=== PATIENT | female | born 1970 | race Two or more races ===

== ENCOUNTER 2016-11-09 06:15 | Emergency (ER) | payer OTHER ==
--- NOTE | ~2016-11-09 | US67 ---
[facility] A Service of [facility] RADIOLOGY TEXT RESULTS PATIENT: POLI PEREZ LOCATION: [facility] : [birth year] UNIT #: [id number] AGE: [address]: Jono Hearn MD SEX: F ORDER DR: [id number] [facility] [address]. [place], [place] [address] [id number] MR#: [id number] Acc #: [id number] NAME: POLI PEREZ : 1970 SEX: F STUDY DATE/TIME: 11/09/2016 8:56 UNIT: FELIX ROOM: STUDY DESCRIPTION: Gallbladder Attending Physician: Jono Hearn M.D. Ordering Physician: Jono Hearn M.D. [facility] REPORT This report is preliminary unless electronic signature is present EXAM Right upper quadrant abdominal ultrasound INDICATION Generalized abdominal pain for the past 6 months, worsening over the past day. PROCEDURE Ernandez-scale and Doppler imaging right upper quadrant of the abdomen. COMPARISON 06/12/2016 FINDINGS Technically difficult study secondary to body habitus and bowel gas. Pancreas is mostly obscured and not well seen. The liver has diffusely increased echotexture. Liver measures approximately 17.5 cm. No visible liver mass on submitted images. 2.1 cm stone in the gallbladder. Gallbladder sludge. There is no wall thickening or pericholecystic fluid. Common duct measures 5.0 mm. The right kidney measures 10.7 cm and is unremarkable. IMPRESSION 1. Hepatic steatosis. 2. 2.1 cm stone in the gallbladder as well as some sludge. No appreciable gallbladder wall thickening or pericholecystic fluid. 3. Common duct upper limits of normal. Dictated by... Samuel Noriega M.D. THIS IS AN ELECTRONICALLY VERIFIED REPORT Samuel Noriega M.D. at 11/12/2016 1:55 PM [facility] A Service of [facility] RADIOLOGY TEXT RESULTS PATIENT: POLI PEREZ LOCATION: [facility] : [birth year] UNIT #: [id number] AGE: [address]: Jono Hearn MD SEX: F ORDER DR: BRIEN/thalia TD: 11/09/2016 11:22 JOB #: [id number] MEDICAL IMAGING REPORT Page 1 of 1 COPY
[~2016-11-09 06:15] MED LIST: ASPIRIN81 M2 PO; ENALAPRIL MALEA10 MG PO; GLUCOPHAGE850 MG PO; NORCO 7.5-3251 EACH
[2016-11-09 07:55] LABS: BASOPHIL% 0.6 % (0-2.5); EOSINOPHIL# 0.4 X10e3 (0-0.7); EOSINOPHIL% 5.3 % (0.0-7.0); HEMATOCRIT 40.6 % (35.0-45.0); HEMOGLOBIN 13.4 gm/dL (12.0-16.0); LYMPHOCYTE# 2.9 X10e3 (1.0-3.5); LYMPHOCYTE% 40.2 % (17.0-45.0); MEAN CELL VOLUME 83.5 FL (83-96); MEAN CORPUSCULAR HEMOGLOBIN 27.6 PG (28-34); MEAN PLATELET VOLUME 9.6 FL (6.5-11.5); MONOCYTE# 0.5 X10e3 (0-1.0); MONOCYTE% 7.4 % (3.0-12.0); NEUTROPHIL# 3.4 X10e3 (1.5-7.1); NEUTROPHIL% 46.5 % (40-75); PLATELET COUNT 271 X10e3 (140-420); RED BLOOD COUNT 4.87 X10e (3.90-5.30); RED CELL DISTRIBUTION WIDTH 13.7 % (11.0-15.5); WHITE BLOOD COUNT 7.3 X10e3 (4.0-10.5)
[2016-11-09 08:04] LABS: DIFF IND NO
[2016-11-09 08:29] LABS: ALKALINE PHOSPHATASE 61 U/L (32-92); ALT (SGPT) 50 U/L (10-40); AMYLASE 20 U/L (0-46); AST (SGOT) 35 U/L (10-42); BILIRUBIN,TOTAL 0.7 mg/dL (0.2-2.0); BLOOD UREA NITROGEN 10 mg/dL (9-23); CALCIUM SERUM 9.2 mg/dL (8.4-10.2); CARBON DIOXIDE 27 mmol/L (22-31); CHLORIDE 99 mmol/L (100-111); CREATININE SERUM 0.5 mg/dL (0.6-1.4); GLOM FILT RATE Estimated 116.9 mL/min (>60); GLUCOSE FASTING 136 mg/dL (70-110); LIPASE 21 U/L (22-51); PROTEIN TOTAL SERUM 6.8 g/dL (6.0-8.3); SODIUM 137 mmol/L (135-145)
[2016-11-09 08:31] LABS: BILIRUBIN, DIRECT <0.1 mg/dL (0.0-0.2); BILIRUBIN,INDIRECT 0.6 mg/dL (0.0-0.9)
[2016-11-09 09:47] LABS: POC - CKMB <1.0 ng/mL (0.0-7.9); POC - TROPONIN <0.05 ng/mL (<=0.05)
== END 2016-11-09 10:27 | disposition home or self-care (01) ==
LOC: CED 06:15
PROVIDERS: Emergency Medicine
DX: K80.70 Calculus of gallbladder and bile duct without cholecystitis without obstruction (principal); E11.9 Type 2 diabetes mellitus without complications; I10 Essential (primary) hypertension
CPT/HCPCS: 36415; 76705; 80048; 80076; 82150; 82553; 83690; 84484; 85025; 96361; 96374; 96375; 99284; J2270; J2405

== ENCOUNTER → 2016-11-23 | Day surgery (SDC) | payer OTHER ==
[~2016-11-23] MED LIST changes: +ASPIRIN EC81 M1 PO; +CHLORTHALIDONE25 M1 PO; +GLUCOPHAGE500 MG PO; +MICRONASE5 M2 PO; +OMEPRAZOLE20 M1; +OMEPRAZOLE20 M1 PO; +VASOTEC10 MG PO
--- NOTE | ~2016-11-23 | EKG ---
PATIENT: POLI PEREZ UNIT #: [id number] Ventricular Rate: 69 BPM Atrial Rate: 69 BPM P-R Interval: 128 ms QRS Duration: 84 ms Q-T Interval: 424 ms QTC Calculation(Bezet): 454 ms P [place]: 19 degrees Calculated T [place]: 11 degrees Diagnosis Line: Normal sinus rhythm Diagnosis Line: Normal ECG Diagnosis Line: When compared with ECG of 12-JUN-2016 08:47, Diagnosis Line: No significant change was found Diagnosis Line: Confirmed by BLAIR AKINS MD ([id number]) on 11/24/2016 Diagnosis Line: 5:41:45 AM INTERPRETING MD: TASHI SAHA
--- NOTE | ~2016-11-23 | OR ---
Unit #: [id number] #: [id number] Patient: POLI PEREZ [id number] [address] [address] [id number] O MR#: [id number] NAME: POLI PEREZ ROOM: Date of Procedure: 11/23/2016 Admission Date: 11/23/2016 Surgeon: Primitivo Moore M.D. : 1970 Attending Physician: Primitivo Moore M.D. Primary Care Physician: [facility] OPERATIVE REPORT PREOPERATIVE DIAGNOSES 1. Cholelithiasis. 2. Chronic cholecystitis. POSTOPERATIVE DIAGNOSES 1. Cholelithiasis. 2. Chronic cholecystitis. PROCEDURE PERFORMED Laparoscopic cholecystectomy. MINERAL ENGINEER Avtar Garrett M.D. ANESTHESIA General endotracheal anesthesia. ESTIMATED BLOOD LOSS Minimal. IV FLUIDS 800 crystalloid. COMPLICATIONS None. INDICATIONS FOR PROCEDURE The patient is a 45-year-old lady with history of gallstones. DESCRIPTION OF PROCEDURE The patient was taken to the operative theater and placed in supine position. General anesthesia was induced. Her abdomen was prepped and draped. A 5-mm Optiview trocar was placed in the right upper quadrant without difficulty. The abdomen was insufflated to 15 mmHg with CO2. Under direct vision, I placed a subxiphoid 10 mm, right lateral 5 mm, umbilical 5 mm. General inspection of the abdomen revealed adhesions to the gallbladder. These were taken down. The gallbladder was retracted up over the liver. We dissected the neck of the gallbladder and identified the cystic duct. Its junction with the gallbladder was confirmed. It was thus skeletonized, doubly hemoclipped, and divided. The cystic artery laid immediately posterior. This was skeletonized, doubly hemoclipped, and divided. The gallbladder was removed from the gallbladder bed with Unit #: [id number] #: [id number] Patient: POLI PEREZ Bovie electrocautery and delivered via the subxiphoid port. Hemostasis was adequate. I saw no other abnormalities. The ports were removed. The fascia was closed with 0 Vicryl and skin with 4-0 Vicryl. The patient tolerated the procedure well and sent to recovery room in good condition. Dictated by... Cedric CrowderO/gurjit TD: 11/23/2016 20:46 JOB #: [id number] OPERATIVE REPORT Page 1 of 1 X Primitivo Moore MD PROCEDURE OPERATIVE NOTE
== END | disposition home or self-care (01) ==
LOC: CSUR 07:30
PROVIDERS: Surgery
PROC: 0FT44ZZ Resection of Gallbladder, Percutaneous Endoscopic Approach (ICD-10-PCS; principal; 2016-11-23 12:00)
DX: K80.10 Calculus of gallbladder with chronic cholecystitis without obstruction (principal); E11.9 Type 2 diabetes mellitus without complications; Z79.84 Long term (current) use of oral hypoglycemic drugs; Z82.3 Family history of stroke; Z87.898 Personal history of other specified conditions; Z90.49 Acquired absence of other specified parts of digestive tract
CPT/HCPCS: 82947; 84703; 88304; 93005; J0690; J1170; J1644; J2250; J2405; J3010

== ENCOUNTER 2016-12-29 17:18 | Observation (INO) | payer OTHER ==
[~2016-12-29] VITALS: Ht 154.9 cm; Wt 63.5 kg
--- NOTE | ~2016-12-29 | HP ---
Unit #: [id number] #: [id number] Patient: POLI PEREZ [id number] [address] [address] [id number] I MR#: [id number] NAME: POLI PEREZ. ROOM: 240 Age: 46 Sex: F Admission Date: 12/29/2016 : 1970 Attending Physician: Jorge Echols M.D. Primary Care Physician: [facility]. HISTORY AND PHYSICAL REASON FOR ADMISSION Bolus meat impaction of the esophagus. HISTORY Ms. Perez is a 46-year-old female. History was provided by who was at bedside. She presents with an episode of bolus meat impaction with a beef taco that happened yesterday at 3 in the afternoon. The patient came to the emergency room. She has been able to swallow her saliva and is having pain in the area just below the pharynx. There is no previous history of retrosternal sounding heartburn, postprandial dyspepsia nor any history of dysphagia in the past. PAST MEDICAL HISTORY Significant for: 1. Hypertension. 2. Diabetes. PAST SURGICAL HISTORY History of appendectomy. MEDICATIONS Medications at home included: 1. Glucophage. 2. Micronase. 3. Vasotec. 4. Chlorthalidone. 5. Aspirin. ALLERGIES She has no known drug allergies. SOCIAL HISTORY She does not smoke or drink alcohol. Lives at home. FAMILY HISTORY None of colon or pancreatic cancer of liver disease. REVIEW OF SYSTEMS A detailed review of organ systems does not reveal any recent weight loss. No history of fever, chills or diagnosis of headaches, seizures, chest pain or syncope. No history of cough, expectoration or hemoptysis. No history of dysuria, hematuria, pyuria. No history of focal seizures or extremity weakness. Unit #: [id number] #: [id number] Patient: POLI PEREZ PHYSICAL EXAMINATION GENERAL APPEARANCE: She is awake, alert and oriented. VITAL SIGNS: Her current blood pressure is 160/103. Pulse is 78 per minute and regular, respiratory rate 18, temperature is 98.4. She had no pallor, icterus, lymphadenopathy or peripheral edema. CARDIOVASCULAR EXAMINATION: Normal heart sounds. No murmurs. LUNGS: Auscultation over the lungs reveals normal breath sounds. Good air entry. ABDOMEN: Soft, nontender. Liver and spleen are not palpable. Bowel sounds normal. DIAGNOSTIC STUDIES LABORATORY: Lab evaluation has not been done. CLINICAL IMPRESSION Patient with bolus of meat impaction, needs emergent endoscopy to be done first thing in the morning. The pros and cons of procedure, potential risks and complications including possibly a perforation, bleeding and complication with any sedation were discussed with the patient and her family. Dictated by Cedric Carmona TD: 12/30/2016 07:47 JOB #: [id number] HISTORY AND PHYSICAL Page 1 of 1 X Jorge Echols MD HISTORY AND PHYSICAL
--- NOTE | ~2016-12-29 | DS ---
Unit #: [id number] #: [id number] Patient: POLI PEREZ [id number] [facility]. [address] [address] [id number] I MR#: [id number] NAME: POLI PEREZ. ROOM: 240 Age: 46 Sex: F Admission Date: 12/29/2016 : 1970 Discharge Date: 12/30/2016 Attending Physician: Jorge Echols M.D. Primary Care Physician: [facility]. DISCHARGE SUMMARY DIAGNOSIS Meat impaction of the esophagus. PROCEDURE DONE DURING CURRENT HOSPITALIZATION Upper GI endoscopy, done on 12/30/2016. DISCHARGE MEDICATIONS These included all of the preadmission medications and included glyburide 5 mg p.o. b.i.d., aspirin 81 mg p.o. daily, chlorthalidone 12.5 mg p.o. daily, Vasotec 10 mg p.o. daily, metformin 5 mg p.o. b.i.d. Patient was advised to take omeprazole vvgq-[id number] 20 mg p.o. daily for the next couple of months. NARRATIVE This young lady came in with history bolus meat impaction and was admitted to the emergency room as an outpatient observation bed. Upper endoscopy was performed first thing in the morning and was completely normal, there being no stricture, mucosal ring nor any esophagitis. The patient did not have any foreign body or meat impaction in the esophagus. The patient was, therefore, discharged after reassurance. Dictated by... Cedric Carmona TD: 12/30/2016 20:28 JOB #: [id number] DISCHARGE SUMMARY Page 1 of 1 X Jorge Echols MD X DISCHARGE SUMMARY
--- NOTE | ~2016-12-29 | OR ---
Unit #: [id number] #: [id number] Patient: POLI PEREZ [id number] [facility]. [place] [address] [facility]. [place], [place] [address] [id number] I MR#: [id number] NAME: POLI PEREZ. ROOM: 240 Date of Procedure: 12/30/2016 Admission Date: 12/29/2016 Surgeon: Jorge Echols M.D. : 1970 Attending Physician: Jorge Echols M.D. [facility] OPER[facility]IVE REPORT PREOPERATIVE DIAGNOSIS Bolus meat impaction of the esophagus. PROCEDURE PERFORMED Upper gastrointestinal endoscopy. POSTOPERATIVE DIAGNOSES Completely normal examination up to third part of duodenum. The patient did not have any stricture nor any foreign body in the esophagus. The entire upper gastrointestinal tract was normal. RECOMMENDATIONS The patient can be discharged home. She was advised to take omeprazole 20 mg p.o. daily for the next couple of months. This is over the counter. SEDATION USED MAC. DESCRIPTION OF PROCEDURE Following detailed explanation of the potential risks and complications of an upper endoscopy, namely perforation, bleeding, and complication related to sedation, the patient was brought to GI lab and laid in the left lateral decubitus position. Lubricated tip of the Olympus video upper endoscope was passed through the bite block into the proximal esophagus under direct vision. The entire esophageal mucosa was examined and appeared normal. No stricture or mucosal ring was seen and no hiatus hernia was noted. The patient did not have any meat impaction in the esophagus. The scope was then advanced into the gastric cavity and the latter was insufflated. Mucosa of the fundus, body, and antrum was examined and appeared unremarkable. Pylorus was intubated with visualization of the normal duodenal bulb and second and third part of the duodenum. Upon withdrawal and retroflexion; incisura, cardia, and greater curve was examined and no additional findings were noted. The scope was then withdrawn in the distal esophagus. The entire esophageal mucosa was examined all the way up to pharynx. No additional findings were noted. The patient tolerated the procedure without any postprocedure complications. Dictated by... Jorge Echols M.D. Unit #: [id number] #: [id number] Patient: POLI PEREZ AK/gurjit TD: 12/30/2016 10:13 JOB #: [id number] OPERATIVE REPORT Page 1 of 1 X Jorge Echols MD PROCEDURE OPERATIVE NOTE
[~2016-12-29 17:18] MED LIST changes: -ASPIRIN EC81 M1 PO; -CHLORTHALIDONE25 M1 PO; -GLUCOPHAGE500 MG PO; -MICRONASE5 M2 PO; -OMEPRAZOLE20 M1; -OMEPRAZOLE20 M1 PO; -VASOTEC10 MG PO
[2016-12-29] MEDS ORDERED: GLUCOPHAGE500 MG PO ×2 (22:23)
[2016-12-29] MEDS ORDERED: MICRONASE5 M2 PO (22:24)
[2016-12-29] MEDS ORDERED: VASOTEC10 MG PO (22:24)
[2016-12-29] MEDS ORDERED: ASPIRIN EC81 M1 PO (22:25)
[2016-12-29] MEDS ORDERED: CHLORTHALIDONE25 M1 PO (22:25)
[2016-12-29 23:26] LABS: BASOPHIL# 0.1 X10e3 (0-0.3); BASOPHIL% 0.8 % (0-2.5); EOSINOPHIL# 0.1 X10e3 (0-0.7); HEMATOCRIT 42.1 % (35.0-45.0); HEMOGLOBIN 13.7 gm/dL (12.0-16.0); LYMPHOCYTE# 4.1 X10e3 (1.0-3.5); LYMPHOCYTE% 31.2 % (17.0-45.0); MEAN CELL VOLUME 83.2 FL (83-96); MEAN CORPUSCULAR HEMOGLOBIN 27.1 PG (28-34); MEAN CORPUSCULAR HGB CONC 32.5 g/dL (30-36); MEAN PLATELET VOLUME 9.6 FL (6.5-11.5); MONOCYTE# 0.7 X10e3 (0-1.0); MONOCYTE% 5.4 % (3.0-12.0); NEUTROPHIL% 61.6 % (40-75); PLATELET COUNT 330 X10e3 (140-420); RED BLOOD COUNT 5.06 X10e (3.90-5.30); RED CELL DISTRIBUTION WIDTH 13.5 % (11.0-15.5)
[2016-12-29 23:30] LABS: DIFF IND NO
[2016-12-29 23:38] LABS: INR 0.9; PROTHROMBIN TIME (PATIENT) 9.9 SECONDS (10.0-11.7)
[2016-12-29 23:55] LABS: BUN/CREATININE RATIO 18.57; CALCIUM SERUM 9.7 mg/dL (8.4-10.2); CREATININE SERUM 0.7 mg/dL (0.6-1.4); GLOM FILT RATE Estimated 103.9 mL/min (>60); POTASSIUM 3.7 mmol/L (3.5-5.1)
[2016-12-30] MEDS ORDERED: OMEPRAZOLE20 M1 (10:04)
[2016-12-30] MEDS ORDERED: OMEPRAZOLE20 M1 PO (10:42)
== END 2016-12-30 12:28 | disposition home or self-care (01) | DRG 395 ==
LOC: CED 17:18 → CEDOF 23:00 → CED 23:12 → C2A 12-30 00:30 → CEDOF 12-30 00:30 → C2A 12-30 00:30
PROVIDERS: Internal Medicine Gastroenterology
DX: T18.128A Food in esophagus causing other injury, initial encounter (principal); E11.9 Type 2 diabetes mellitus without complications; I10 Essential (primary) hypertension; Z91.030 Bee allergy status; Z79.84 Long term (current) use of oral hypoglycemic drugs; Z79.82 Long term (current) use of aspirin; Z79.899 Other long term (current) drug therapy; Z90.49 Acquired absence of other specified parts of digestive tract; Z98.890 Other specified postprocedural states
CPT/HCPCS: 80048; 82947; 84703; 85025; 85610; 96374; 96375; 96376; 99284; G0378; J1610; J1815; J2250; J2270; J2550